=== PATIENT | female | born 1965 | race Hispanic/Latino ===

== ENCOUNTER 2016-12-15 09:12 | Day surgery (SDC) | payer OTHER ==
[~2016-12-15] VITALS: Ht 157.5 cm; Wt 113.0 kg
[~2016-12-15 09:12] MED LIST: 0.9% Sodium Chloride 1,000 ML IV SCH; AMLO5TAB2 PO; HYDR12.5 PO; Sodium Chloride LOK Flush 10 mL Syringe IV PRN; fentaNYL-PF 50 mCg/mL 2 mL Inj IVPUSH PRN
[2016-12-15 09:46] VITALS: BP 127/75; PULSE 91; RESP 16; O2SAT 98
--- NOTE | 2016-12-15 10:43 | PCM.ENDCOL ---
Colonoscopy Date of Service: Dec 15, 2016 Physician Bipin Lagunas MD Pre Procedure Diagnosis: Screening family history of colon cancer Post Procedure Dx & Findings: Polyp hemorrhoids Procedure Colonoscopy PROCEDURE IN DETAIL: Prep fair Withdrawal time 13 minutes After unremarkable rectal examination the Olympus video colonoscope was inserted patient's anal canal and was advanced to cecum. Landmarks were identified including the ileocecal valve and appendiceal orifice. Scope was withdrawn systematically. Visualized colonic mucosa showed healthy shiny mucosa with normal healthy-appearing vasculature. Indication sigmoid colon there was a 1 mm polyp which was removed completely using cold forceps. In the rectum retroflexion was done which showed hemorrhoids. Anal canal was inspected carefully on the way out and hemorrhoids noted. Impression Fair prep Polyp 1 was complete removal Family history of colon cancer Hemorrhoids Recommendation Repeat colonoscopy 2 years with 3 days clearance. Presedation Assessment Risks and Benefits Informed consent was obtained from the patient after all risks and benefits including but not limited to drug reaction, infection, pain, bleeding, perforation, as well as alternatives were discussed. Patient monitoring Continuous pulse oximetry, cardiac monitoring, blood pressure monitoring, IV access, and oxygen at 2L per nasal cannula. Periprocedural Fentanyl: Fentanyl 100mcg Incrementally Midazolam: Midazolam 2mg Incrementally Complications There were no periprocedural complications identified. Post Procedure Plan Post Procedure Recommendations 1. Restrict activities today. 2. Resume normal activities in the morning. 3. Resume medications. 4. Patient informed of normal post procedure side effects as bloating, drowsiness, blood streaking in the stool. 5. average risk CRCS. If colon polyps come back as: -Hyperplastic- can repeat colonoscopy in 10 years -Tubular adenoma- repeat colonoscopy in 5 years -Tubulovillous/villous adenoma- repeat colonoscopy in 3 years -If any dysplasia- return to clinic as soon as possible 6. Please don't hesitate to call me with any questions. Bipin Lagunas MD Dec 15, 2016 10:42
[2016-12-15 10:44] VITALS: BP 94/39; PULSE 74; RESP 12; O2SAT 95
[2016-12-15 10:57] VITALS: BP 111/60; PULSE 76; RESP 14; O2SAT 97
[2016-12-15 10:59] VITALS: BP 100/57; PULSE 74; RESP 14; O2SAT 96
--- NOTE | 2016-12-16 10:43 | PATH ---
SURGICAL PATHOLOGY Attending Physician:Bipin Lagunas M.D. CASE STATUS: Signed Out PATIENT NAME: JONAH THORNE PID: [id number] : 1965 DATE COLLECTED:12/15/2016 16:41 SPECIMEN: Colon, Polyp CLINICAL HISTORY: 1. SIGMOID COLON POLYP FINAL DIAGNOSIS: 1.SIGMOID COLON POLYP: HYPERPLASTIC POLYP. ICD10 K63.5 GROSS DESCRIPTION: The specimen is received in one formalin filled container labeled with the patient's name, sublabeled "sigmoid colon polyps" and consists of a 0.3 x 0.3 x 0.2 CM portion of tissue which is entirely submitted in one cassette. 12/15/2016 DAC MICRO DESCRIPTION: See diagnosis. ICD-9 CODES: CPT CODES: 1: 37156 Electronically Signed Out Kash Casanova MD [facility]ly [facility] Pathology [facility] [address], [place] [address] Technical component performed at [facility], [address] [place] [address] [address], [place], [address]
== END 2016-12-15 23:59 | disposition home or self-care (01) ==
LOC: END 09:12
PROVIDERS: ATTEND Internal Medicine
DX: Z12.11 Encounter for screening for malignant neoplasm of colon (principal); Z80.0 Family history of malignant neoplasm of digestive organs; K63.5 Polyp of colon; K64.9 Unspecified hemorrhoids; E66.01 Morbid (severe) obesity due to excess calories; Z68.42 Body mass index [BMI] 45.0-49.9, adult
CPT/HCPCS: 45380; 88305; 99152; J2250; J3010; J7030

== ENCOUNTER 2016-12-31 20:20 | Emergency (ER) | payer OTHER ==
[~2016-12-31] VITALS: Ht 157.5 cm; Wt 115.0 kg
[~2016-12-31 20:20] MED LIST changes: -0.9% Sodium Chloride 1,000 ML IV SCH; -Sodium Chloride LOK Flush 10 mL Syringe IV PRN; -fentaNYL-PF 50 mCg/mL 2 mL Inj IVPUSH PRN
[2016-12-31 20:23] VITALS: BP 151/100; PULSE 80; RESP 18; O2SAT 96
[2016-12-31] MEDS ORDERED: 0.9% Sodium Chloride 1,000 ML IV ONE (20:27)
--- NOTE | 2016-12-31 20:27 | ED.REPORT ---
HPI-General Illness Date of Service Dec 31, 2016 ED Provider: Torres Ohara MD Pt is a generally healthy 51 y/o female w/ a hx of HTN presenting to the ED c/o worsening constant periumbilical abdominal pain with radiation to the entire right abdomen and back onset 3 days ago. She has no history of similar symptoms. Her symptoms are much worse after eating. The patient does have a history of cholecystectomy. She c/o associated nausea. Pt denies vomiting, bloody stool, diarrhea, vaginal bleeding, dysuria, urinary frequency, recent illnesses. She recently finished a menstrual period on 12/27. She had a colonoscopy on 12/15. The patient has no history of PCOS. She had an abdominal CT scan performed as an outpatient today ordered by her PCP interpreted as below. Outpatient abdominal CT performed today interpreted as below: Findings raise the possibility of early/low grade acute appendicitis. Possible 1 mm appendicolith. Please correlate clinically and with laboratory data. Shotty periappendiceal lymph nodes which may be reactive although not pathologically enlarged. Right lung base nodule which may be postinflammatory given the groundglass appearance however recommend continued followup with repeat noncontrast chest CT in 6 months, to exclude malignant/metastatic possibilities. NPO as of 18:00. Nursing Notes Stated Complaint: ABDOMINAL PAIN Chief Complaint: Female Abdominal Pain Nursing Notes Reviewed: Yes Allergies: Coded Allergies: naproxen (Verified Allergy, Severe, TROUBLE BREATHING, 12/31/16) Scheduled Amlodipine (Amlodipine) 5 Mg Tablet 5 MG PO DAILY Hydrochlorothiazide (Hydrochlorothiazide) 12.5 Mg Capsule 12.5 MG PO DAILY General Time Seen by MD: 20:25 Chief Complaint Abdominal pain Hx Obtained From: Patient Arrived By: Walk-in Sudden in Onset?: No Onset Occurred: 4 days ago Symptom Duration: Since onset Location: : Abdomen Quality: Painful Severity: Current: Moderate Severity: Maximum: Moderate Recent Healthcare: Recent doctor visit Similar Sx Previous: No Past Medical History Past Medical History Anxiety attacks Reports: Hypertension Past Surgical History Cholecystectomy Family History Reports: Stroke Smoking History Former Smoker Social History Alcohol Use: Denies alcohol use Ambulatory Status Independent Review of Systems Full Review of Systems Constitutional: Denies: Chills, Fever Respiratory: Denies: Non-productive cough, Shortness of breath Cardiovascular: Denies: Chest pain GI: Reports: Abdominal pain, Nausea, Denies: Bloody/tarry stool, Vomiting Complete sys rev & neg: except as marked. Physical Exam Vital Signs Vital Signs Date Time Temp Pulse Resp B/P Pulse Ox O2 Delivery O2 Flow Rate FiO2 12/31/16 22:27 77 16 96/61 98 Room Air 12/31/16 22:25 77 16 96/61 98 Room Air 12/31/16 20:23 36.6 80 18 151/100 96 Room Air Initial VS: Reviewed, Vital signs normal Head / Eyes: Atraumatic, Normocephalic, PERRL ENT: Mucous membranes moist, Conjunctiva normal, No scleral icterus Neck: Supple, Full range of motion Respiratory: Breath sounds normal, Clear to auscultation, No respiratory distress Cardiovascular: Regular rate & rhythm, Heart sounds normal, Intact distal pulses Extremities: Vascular intact, Neuro intact, No swelling Skin: Warm, Dry, No cyanosis Neurologic: Alert, Oriented, Nonfocal Psychiatric: Mood/affect normal, Behavior normal, Normal thought content General/Constitutional: Awake, Alert, No acute distress, Cooperative, Not toxic appearing Abdomen: Atraumatic, Soft, No guarding, No rebound, No distention, No palpable mass Tenderness/Guarding/Rebound: Positive: Tender RLQ... (Mild) Interpretation & Diagnostics Lab Results Interpretation Result Diagram: 12/31/16 2100 12/31/16 2100 Test 12/31/16 21:00 12/31/16 21:13 White Blood Count 9.1th/mm3 (3.8-10.1) Red Blood Count 5.11mil/mm3 (3.90-5.20) Hemoglobin 13.9g/dL (12.0-15.6) Hematocrit 41.7% (35.0-46.0) Mean Corpuscular Volume 81.6fL (81-100) Mean Corpuscular Hemoglobin 27.2pg (27.0-35.0) Mean Corpuscular Hemoglobin Concent 33.3% (32.0-37.0) Red Cell Distribution Width 14.9% (12.3-15.4) Platelet Count 254bil/L (150-400) Neutrophils (%) (Auto) 45.8% (40-74) Lymphocytes (%) (Auto) 36.7% (14-46) Monocytes (%) (Auto) 7.4% (4-12) Eosinophils (%) (Auto) 9.6% (0-5) Basophils (%) (Auto) 0.3% (0-3) Sodium Level 136mEq/L (134-144) Potassium Level 3.3mEq/L (3.5-5.2) Chloride Level 98mEq/L (97-108) Carbon Dioxide Level 26mmol/L (18-29) Blood Urea Nitrogen 13mg/dL (6-24) Creatinine 0.83mg/dL (0.57-1.00) Estimat Glomerular Filtration Rate 104mL/min (>59) Glucose Level 125mg/dL (60-99) Calcium Level 9.7mg/dL (8.5-10.1) Magnesium Level 2.1mg/dL (1.6-2.6) Total Bilirubin 0.3mg/dL (0.0-1.2) Aspartate Amino Transf (AST/SGOT) 13U/L (0-50) Alanine Aminotransferase (ALT/SGPT) 14U/L (0-32) Alkaline Phosphatase 78U/L (25-150) Total Protein 7.4g/dL (6.4-8.4) Albumin 3.8g/dL (3.4-5.0) Lipase 31U/L (13-60) Hold Sanchez Top Tube Received (Received) Urine Color Straw (YELLOW) Urine Appearance Clear (CLEAR,HAZY) Urine pH 6.0 (5.0-8.0) Urine Specific [place] 1.070 (1.003-1.035) Urine Protein Negativemg/dL (NEG,TRACE) Urine Glucose (UA) Negativemg/dL (NEGATIVE) Urine Ketones Negativemg/dL (NEGATIVE) Urine Occult Blood Small (NEGATIVE) Urine Nitrite Negative (NEGATIVE) Urine Bilirubin Negative (NEGATIVE) Urine Urobilinogen Normalmg/dL (NORMAL) Urine Leukocyte Esterase Negative (NEGATIVE) Urine RBC 3-10/hpf (0-2) Urine WBC 0-5/hpf (0-5) Urine Epithelial Cells Few/hpf (NONE-MOD) Urine Crystals None seen (NONE SEEN) Urine Bacteria Few/hpf (NONE-FEW) Urine Hyaline Casts None/lpf (NONE) Urine Granular Casts None seen (NONE SEEN) Urine Waxy Casts None seen (NONE SEEN) Urine Red Blood Cell Casts None seen (NONE SEEN) Urine White Blood Cell Casts None seen (NONE SEEN) Urine Mucus Present (None Seen) Urine Trichomonas None seen (NONE SEEN) Urine Yeast None (NONE SEEN) Urinalysis Comment None Urine Culture Reflexed Not indicated CT Abd / Pelvis Interpretation IMPRESSION: Findings raise the possibility of early/low grade acute appendicitis. Possible 1 mm appendicolith. Please correlate clinically and with laboratory data. Shotty periappendiceal lymph nodes which may be reactive although not pathologically enlarged. Right lung base nodule which may be postinflammatory given the groundglass appearance however recommend continued followup with repeat noncontrast chest CT in 6 months, to exclude malignant/metastatic possibilities. Findings were personally telephoned to Dr. Juan M Schmidt 1932 hours 12/31/16. Dictated by: Syed Holguin M.D. on 12/31/2016 at 19:25 Approved by: Syed Holguin M.D. on 12/31/2016 at 19:34 Study type: Abdominal CT IV contrast, Abdom CT oral contrast Interpretation / Wet Read by: Interpret - Radiologist Re-Eval/Medical Decision Med Decision/Clinical Course Pt is a generally healthy 51 y/o female w/ a hx of HTN presenting to the ED c/o worsening constant periumbilical abdominal pain with radiation to the entire right abdomen and back onset 3 days ago. She has no history of similar symptoms. Her symptoms are much worse after eating. The patient does have a history of cholecystectomy. She c/o associated nausea. Pt denies vomiting, bloody stool, diarrhea, vaginal bleeding, dysuria, urinary frequency, recent illnesses. She recently finished a menstrual period on 12/27. She had a colonoscopy on 12/15. The patient has no history of PCOS. She had an abdominal CT scan performed as an outpatient today ordered by her PCP interpreted as below. Outpatient abdominal CT performed today interpreted as below: Findings raise the possibility of early/low grade acute appendicitis. Possible 1 mm appendicolith. Please correlate clinically and with laboratory data. Shotty periappendiceal lymph nodes which may be reactive although not pathologically enlarged. Right lung base nodule which may be postinflammatory given the groundglass appearance however recommend continued followup with repeat noncontrast chest CT in 6 months, to exclude malignant/metastatic possibilities. NPO as of 18:00. Here in the emergency department the patient is afebrile, hemodynamically stable and in no apparent distress. The patient has very mild tenderness to firm palpation in the right lower quadrant and right upper quadrant however there is no guarding, rigidity or rebound. Meds given: IV fluids, Zofran, Dilaudid Labs notable as below: CBC: unremarkable CMP: unremarkable UA: unremarkable Overall presentation convincing for acute appendicitis. The duration of her symptoms is not classical for acute appendicitis. She is without any leukocytosis and abdominal examination is relatively benign. CT findings are nonspecific. Patient was discussed with general surgery Dr. Wellington who had already reviewed her CT scan. Was not felt that the patient's presentation was consistent with acute appendicitis. Discussed management options with the patient and we opted to discharge with plan for reassessment in 24 hours. She is advised to return immediately should she develop any worsening pain, progressive pain or failure of symptoms to improve. She will call first thing tomorrow morning to follow up with her primary care doctor and if she cannot make an appointment she will come back to the emergency room for repeat examination. Prior to discharge follow-up and return precautions were reviewed in detail with the patient who verbalized understanding and agreement with the plan. The patient was discharged in stable condition. Source of Hx: Old records Time of Eval: 22:10 Re-Evaluation/Progress Note: Pt rechecked. Informed pt of plan for treatment. Pt understands and agrees with plan for treatment. F/U instructions and RTER warnings given. All questions addressed. Consultation : Referral / Consult Name: Kelle Wellington MD Call Returned at: 22:02 Buffet Attendant: Agrees with eval, Agrees with plan Note: Agrees with plan for dc. Counseled Regarding: Diagnosis, Lab results, Need for follow-up, When/why to return to ED Discharge & Departure Primary Impression: Abdominal pain, RLQ Disposition: Home Discharge Condition All VS Reviewed: Yes Condition: Stable Patient Instructions: Acute Abdominal Pain (ED) Additional Instructions: Thank you for seeking care at the emergency room. It is difficult for us to make definitive diagnoses in the ED but we are not convinced at this moment that you are experiencing acute appendicitis. If you experience increasing abdominal pain, vomiting or any worsening symptoms he should come back to the emergency room immediately. I would like you to be reevaluated in the next 24 hours. Please call your primary care physician's office first thing tomorrow morning. If you are unable to be seen should come back to the emergency room to have your abdomen examined again. Our primary goal today in the ED was to evaluate you for any life-threatening conditions. Your evaluation was reassuring. You should return to the ED immediately if you develop worsening pain, failure pain to improve, fevers, vomiting, cough, shortness of breath, chest pain, lightheadedness, weakness or any other concerning signs or symptoms. Thank you for letting us partake in your care today. Referrals: Kateryna Mello MD (PCP) Scribe Attestation Portions of this note were transcribed by Wes Cortes. I, Dr. Ohara personally performed the history, physical exam and medical decision-making; I reviewed and confirmed the accuracy of the information in the transcribed note. Signed by Farzaneh Cordova, 12/31/16 - 2099 copies to: Kateryna Mello MD, Beck O MD Dec 31, 2016 20:27 WES CORTES Dec 31, 2016 20:44
[2016-12-31] MEDS ORDERED: Ondansetron 2 mg/mL 2 mL Inj IVPUSH ONE (20:30)
[2016-12-31] MEDS ORDERED: HYDROmorphone 0.5 mg/0.5 mL iSecure Syringe IVPUSH PRN (20:30)
[2016-12-31 21:13] LABS: BASOPHILS % (AUTO) 0.3 % (0-3); EOSINOPHILS % (AUTO) 9.6 % (0-5); MONOCYTES % (AUTO) 7.4 % (4-12); Mean Corpuscular Hemoglobin 27.2 pg (27.0-35.0); Mean Corpuscular Volume 81.6 fL (81-100); NEUTROPHILS % (AUTO) 45.8 % (40-74); Platelet Count 254 bil/L (150-400)
[2016-12-31 21:35] LABS: Magnesium 2.1 mg/dL (1.6-2.6)
[2016-12-31 21:51] LABS: APPEARANCE,URINE CLEAR (CLEAR,HAZY); COLOR,URINE STRAW (YELLOW); OCCULT BLOOD,URINE SMALL (NEGATIVE); UROBILINOGEN,URINE NORMAL (NORMAL)
[2016-12-31 22:25] VITALS: BP 96/61; PULSE 77; RESP 16; O2SAT 98
[2016-12-31 22:27] VITALS: BP 96/61; PULSE 77; RESP 16; O2SAT 98
== END 2016-12-31 22:28 | disposition home or self-care (01) ==
LOC: SED 20:20
DX: R10.31 Right lower quadrant pain (principal); R11.0 Nausea; I10 Essential (primary) hypertension; F41.9 Anxiety disorder, unspecified; Z90.49 Acquired absence of other specified parts of digestive tract; Z87.891 Personal history of nicotine dependence; Z88.8 Allergy status to other drugs, medicaments and biological substances
CPT/HCPCS: 36415; 80053; 81000; 81025; 83690; 83735; 85025; 96361; 96374; 96375; 99285; J1170; J2405; J7030

== ENCOUNTER 2017-01-02 20:27 | Emergency (ER) | payer OTHER ==
[~2017-01-02] VITALS: Ht 157.5 cm; Wt 69.1 kg
[2017-01-02 20:42] VITALS: BP 157/91; PULSE 87; RESP 18; O2SAT 98
--- NOTE | 2017-01-02 22:25 | ED.REPORT ---
HPI-General Illness Date of Service Jan 02, 2017 ED Provider: Benjamin Gonzáles MD The patient is a 51 year old female who presents to the ED due to 12/29, persistent, sharp, mid-abdominal pain radiating to the right side of her abdomen onset 3 days ago. Associated symptoms include nausea. The pain is slightly better when she takes a deep breath. She was seen at [facility] 2 days ago for similar symptoms at which time her CT was nonspecific and it was felt that it was unlikely that she had appendicitis. She was discharged with instructions to return if her pain had not improved. She denies dysuria, hematuria, hematochezia, bloody/tarry stool, chest pain, fever, shortness of breath, difficulty urinating, and changes in bowel patterns . Nursing Notes Stated Complaint: PAIN Chief Complaint: Female Abdominal Pain Nursing Notes Reviewed: Yes Allergies: Coded Allergies: naproxen (Verified Allergy, Severe, TROUBLE BREATHING, 12/31/16) Scheduled Amlodipine (Amlodipine) 5 Mg Tablet 5 MG PO DAILY Hydrochlorothiazide (Hydrochlorothiazide) 12.5 Mg Capsule 12.5 MG PO DAILY General Time Seen by MD: 22:17 Chief Complaint Abdominal pain Hx Obtained From: Patient Arrived By: Walk-in Sudden in Onset?: Yes Onset Occurred: 3 days ago Symptom Duration: Since onset Location: : Abdomen Quality: Painful, Sharp Severity: Current: Pain level 7 out of 10 Recent Healthcare: Recent doctor visit Similar Sx Previous: Yes Past Medical History Past Medical History Anxiety attacks Reports: Hypertension Past Surgical History Cholecystectomy Family History Reports: Stroke Smoking History Former Smoker Social History Alcohol Use: Denies alcohol use Ambulatory Status Independent Review of Systems Full Review of Systems Constitutional: Denies: Chills, Fever Respiratory: Denies: Shortness of breath Cardiovascular: Denies: Chest pain GI: Reports: Abdominal pain, Nausea, Denies: Constipation, Diarrhea, Vomiting Female: Denies: Dysuria, Hematuria, Incontinence, , Urinary frequency, Urinary urgency, Urination decreased, Urination increased, Vaginal bleeding - abnl, Vaginal discharge Complete sys rev & neg: except as marked. Physical Exam Nursing note and vitals reviewed. Constitutional: Well-developed, well-nourished. Not diaphoretic. Head: Normocephalic and atraumatic. Mouth/Throat: Oropharynx is clear and moist. No oropharyngeal exudate. Eyes: EOM are normal. Pupils are equal, round, and reactive to light. Neck: Supple, no tracheal deviation. Cardiovascular: Normal rate, regular rhythm. Equal and intact distal pulses throughout. Pulmonary/Chest: Effort normal and breath sounds normal. No respiratory distress. Abdominal: RLQ tenderness. No rebound or guarding. Bowel sounds present. Musculoskeletal: Range of motion grossly intact, moving all extremities. No edema or tenderness appreciated. Neurological: AOx3. Grossly nonfocal exam. Strength and sensation intact and equal to bilateral upper and lower extremities. Skin: Warm and dry, no rashes or pallor appreciated. Psychiatric: Appropriate mood and affect. Behavior appears normal. Vital Signs Vital Signs Date Time Temp Pulse Resp B/P Pulse Ox O2 Delivery O2 Flow Rate FiO2 01/02/17 20:42 36.7 87 18 157/91 98 Room Air Initial VS: Reviewed Interpretation & Diagnostics Lab Results Interpretation Result Diagram: 01/02/173 01/02/17 2233 Test 01/02/17 22:33 01/02/17 23:15 White Blood Count 11.2th/mm3 (3.8-10.1) Red Blood Count 5.17mil/mm3 (3.90-5.20) Hemoglobin 14.0g/dL (12.0-15.6) Hematocrit 42.6% (35.0-46.0) Mean Corpuscular Volume 82.4fL (81-100) Mean Corpuscular Hemoglobin 27.1pg (27.0-35.0) Mean Corpuscular Hemoglobin Concent 32.9% (32.0-37.0) Red Cell Distribution Width 14.9% (12.3-15.4) Platelet Count 258bil/L (150-400) Neutrophils (%) (Auto) 48.7% (40-74) Lymphocytes (%) (Auto) 31.2% (14-46) Monocytes (%) (Auto) 9.0% (4-12) Eosinophils (%) (Auto) 10.6% (0-5) Basophils (%) (Auto) 0.4% (0-3) Hold Purple Top Tube Received (Received) Prothrombin Time 9.9sec (8.1-12.5) Prothromb Time International Ratio 0.93ratio Hold Blue Top Tube Received (Received) Sodium Level 141mEq/L (134-144) Potassium Level 3.4mEq/L (3.5-5.2) Chloride Level 102mEq/L (97-108) Carbon Dioxide Level 26mmol/L (18-29) Blood Urea Nitrogen 14mg/dL (6-24) Creatinine 1.18mg/dL (0.57-1.00) Estimat Glomerular Filtration Rate 69mL/min (>59) Glucose Level 101mg/dL (60-99) Lactic Acid Level 1.0mmol/L (0.4-2.0) Calcium Level 9.6mg/dL (8.5-10.1) Magnesium Level 2.0mg/dL (1.6-2.6) Total Bilirubin 0.2mg/dL (0.0-1.2) Aspartate Amino Transf (AST/SGOT) 13U/L (0-50) Alanine Aminotransferase (ALT/SGPT) 13U/L (0-32) Alkaline Phosphatase 95U/L (25-150) Total Protein 7.9g/dL (6.4-8.4) Albumin 4.0g/dL (3.4-5.0) Lipase 34U/L (13-60) Hold [place] Top Tube Received (Received) Hold Sanchez Top Tube Received (Received) Urine Color Yellow (YELLOW) Urine Appearance Clear (CLEAR,HAZY) Urine pH 7.5 (5.0-8.0) Urine Specific [place] 1.010 (1.003-1.035) Urine Protein Negativemg/dL (NEG,TRACE) Urine Glucose (UA) Negativemg/dL (NEGATIVE) Urine Ketones Negativemg/dL (NEGATIVE) Urine Occult Blood Trace (NEGATIVE) Urine Nitrite Negative (NEGATIVE) Urine Bilirubin Negative (NEGATIVE) Urine Urobilinogen Normalmg/dL (NORMAL) Urine Leukocyte Esterase Negative (NEGATIVE) Urine RBC 0-2/hpf (0-2) Urine WBC 0-5/hpf (0-5) Urine Epithelial Cells Few/hpf (NONE-MOD) Urine Crystals None seen (NONE SEEN) Urine Bacteria Few/hpf (NONE-FEW) Urine Hyaline Casts None/lpf (NONE) Urine Granular Casts None seen (NONE SEEN) Urine Waxy Casts None seen (NONE SEEN) Urine Red Blood Cell Casts None seen (NONE SEEN) Urine White Blood Cell Casts None seen (NONE SEEN) Urine Mucus None seen (None Seen) Urine Trichomonas None seen (NONE SEEN) Urine Yeast None (NONE SEEN) Urinalysis Comment None Urine Culture Reflexed Not indicated ECG Interpretation ECG Interpretation: flattened T-waves Time: 23:10 Interpreted by: ED physician Normal ECG Interpretation: Normal sinus rhythm (rate 65) Re-Eval/Medical Decision Med Decision/Clinical Course 51-year-old female presenting to the ED with persistent right lower quadrant pain over the past 3 days in the setting of being seen in the ED for appendicitis 2 days ago. She has a reassuring abdominal exam with only mild right lower quadrant tenderness to palpation. Pertinent laboratory studies include a white blood cell count of 11.2. No left shift. She is very well- appearing, afebrile. EKG shows sinus rhythm with some flattened T waves; unclear if this had been there previously and the patient has no chest pain or shortness of breath, no epigastric pain. Mildly hypertensive, otherwise vitals grossly within normal limits. CT scan demonstrates an appendix that appears to be within the upper limits of normal; I discussed the CT scan with Dr. Morales of Radiology - she feels that this is not indicative of appendicitis, especially in the context of her previous scan. Given this, reasonable for discharge home with very careful return precautions, PCP follow-up in the next 1 -2 days. Patient agreeable to the plan as stated, no further questions. Time of Eval: 01:06 Patient Status: Condition improved Counseled Regarding: Diagnosis, Lab results, Need for follow-up, When/why to return to ED Discharge & Departure Primary Impression: Abdominal pain Abdominal location: unspecified location Qualified Code: R10.9 - Unspecified abdominal pain Disposition: Home Discharge Condition All VS Reviewed: Yes Condition: Improved Patient Instructions: Acute Abdominal Pain (ED) Additional Instructions: Thank you for entrusting us with your care today. Your CT did not show any acute findings that would explain your pain. As previously discussed, there is a nodule in your lung that I would like for you to discuss with your primary doctor and see if you need further imaging. Use Tylenol and Ibuprofen as needed for pain. Follow up with your primary care physician in the next 1-2 days. Continue to monitor your symptoms. Do not hesitate to return to the Emergency Department if you experience any new or worsening symptoms including increased pain, bloody/tarry stool, vomiting, diarrhea, dizziness, weakness, numbness, or tingling. I hope you feel better soon. Referrals: Kateryna Mello MD (PCP) Scribe Attestation Portion of this note were transcribed by Laura Nunez. I, Dr. Gonzáles, personally performed the history, physical exam, and medical decision-making: I reviewed and confirmed the accuracy for the information in the transcribed note. Signed by: antelmo Hunter, 01/02/17 1460 copies to: Kateryna Mello MD, William B MD Jan 02, 2017 22:25 Laura Nunez Jan 02, 2017 22:52
[2017-01-02] MEDS ORDERED: 0.9% Sodium Chloride 1,000 ML IV ONE (22:51)
[2017-01-02] MEDS ORDERED: HYDROmorphone 0.5 mg/0.5 mL iSecure Syringe IVPUSH PRN (22:55)
[2017-01-02] MEDS ORDERED: Ondansetron 2 mg/mL 2 mL Inj IVPUSH PRN (22:55)
[2017-01-02 23:00] LABS: BASOPHILS % (AUTO) 0.4 % (0-3); EOSINOPHILS % (AUTO) 10.6 % (0-5); Mean Corpuscular Hemoglobin 27.1 pg (27.0-35.0); Mean Corpuscular Volume 82.4 fL (81-100); NEUTROPHILS % (AUTO) 48.7 % (40-74); Platelet Count 258 bil/L (150-400)
[2017-01-02 23:04] LABS: INR 0.93 ratio
[2017-01-02 23:27] LABS: APPEARANCE,URINE CLEAR (CLEAR,HAZY); COLOR,URINE YELLOW (YELLOW); OCCULT BLOOD,URINE TRACE (NEGATIVE); PH,URINE 7.5 (5.0-8.0); UROBILINOGEN,URINE NORMAL (NORMAL)
[2017-01-03 01:37] VITALS: BP 146/90; PULSE 84; RESP 18; O2SAT 98
--- NOTE | 2017-01-03 14:44 | DRSVH ---
PROCEDURE: CT ABDOMEN AND PELVIS WITH CONTRAST ([id number]) INDICATIONS: eval for appy, other abnl; recent CT w/ ?appy TECHNIQUE: After the administration of intravenous contrast, 5 mm thick sections acquired from the diaphragm to the symphysis. 5 mm coronal and sagittal reformats were acquired. For radiation dose reduction, the following was used: automated exposure control, adjustment of mA and/or kV according to patient [place]. COMPARISON: [facility], CT, CT ABD PELVIS W CON, 12/31/2016, 18:45. FINDINGS: Image quality: Excellent. ABDOMEN: Lung bases: Lung bases show a 700 mm density ill-defined at the right lung base unchanged since the previous CT Heart size is normal. Solid organs: Liver and spleen are normal in size and enhancement. Gallbladder has been removed.. Biliary system is non dilated. Pancreas enhances normally. No adrenal nodules. Kidneys demonstrate normal size and enhancement, without hydronephrosis. Peritoneum and bowel: Bowel loops demonstrate normal wall thickness and caliber. No free fluid or a ir. The appendix remains unchanged. A small appendicolith is seen in the midportion of the appendix. The than measures approximately 8 mm in transverse dimension. It still remains suspicious for early appendicitis. Nodes and vessels: No retroperitoneal or mesenteric adenopathy by size criteria. Aorta and inferior vena cava are normal in size. Miscellaneous: No ventral hernias. PELVIS: Genitourinary: Bladder wall thickness is normal. Uterus and ovaries are grossly normal. Miscellaneous: No inguinal hernias or adenopathy. Bones: No suspicious bony lesions. No vertebral body compression fractures. IMPRESSION: 1. No change is seen in the appendix which is borderline abnormal in size and has a central appendico lith. The no free air or extraluminal fluid is seen. Early acute appendicitis is still a possibility. 2. 7 right millimeter nodule at the right lung base unchanged. Followup of this in 6 months is sugges justen. Dictated by: Sandro Hutton M.D. on 01/03/2017 at 14:36 this report corresponds to the findings of the preliminary NSR report. Approved by: Sandro Hutton M.D. on 01/03/2017 at 14:42
== END 2017-01-03 01:38 | disposition home or self-care (01) ==
LOC: SED 20:27
DX: R10.31 Right lower quadrant pain (principal); R11.0 Nausea; I10 Essential (primary) hypertension; F41.9 Anxiety disorder, unspecified; Z90.49 Acquired absence of other specified parts of digestive tract; Z87.891 Personal history of nicotine dependence; Z88.8 Allergy status to other drugs, medicaments and biological substances
CPT/HCPCS: 36415; 74177; 80053; 81000; 83605; 83690; 83735; 85025; 85610; 93005; 96361; 96374; 96375; 99285; J1170; J2405; J7030; Q9967